=== PATIENT | male | born 1965 | race Caucasian/White ===

== ENCOUNTER 2019-04-09 16:44 | Emergency (ER) | payer SELFPAY ==
[2019-04-09] MEDS ORDERED: LORazepam 0.5 MG Tab PO ONE (18:08)
--- NOTE | 2019-04-09 18:20 | EDM.PDOC ---
ED HPI GENERAL MEDICAL PROBLEM - General Chief Complaint: Drug or Alcohol Abuse Stated Complaint: DETOX Time Seen by Provider: 04/09/19 17:51 Source of Information: Reports: Patient, RN Notes Reviewed History Limitations: Reports: No Limitations - History of Present Illness INITIAL COMMENTS - FREE TEXT/NARRATIVE: Patient is a 53-year-old male who presents to the ED for the evaluation of his alcohol issues. The patient states that he has a history of alcoholism, had an 8 year period of being sober, but about 1 to 1-1/2 months ago, he just started drinking again. He notes that there was no specific reason. He further notes that he ran out of anxiety meds around that time as well. He use to take clonazepam 0.5 mg twice a day PRN, and Lexapro daily. He also takes medications for blood pressure. He denies any other past medical history. He is in the ER today with his daughter. He was in contact with [facility], and was directed to come to the ER for evaluation at this time. He denies any fevers or chills, he does complain of some anxiety, nausea, vomiting , and diarrhea. Patient states he hasn't really gotten a good nights' sleep in the last few days as well. He noticed that the nausea and vomiting diarrhea has worsened since he started drinking again. He has no abdominal pain, no chest pain or no shortness of breath. He denies pain anywhere else. - Related Data Allergies Allergy/AdvReac Type Severity Reaction Status Date / Time Sulfa (Sulfonamide Allergy Rash Verified 04/09/19 17:09 Antibiotics) Home Meds: Home Meds LORazepam [Ativan] 1 mg PO TID PRN #12 tab 04/09/19 [Rx] Lisinopril/Hydrochlorothiazide [Lisinopril-Hctz 20-12.5 mg Tab] 1 tab PO DAILY 04/09/19 [History] Zolpidem [Ambien] 10 mg PO BEDTIME #5 tab 04/09/19 [Rx] Past Medical History Cardiovascular History: Reports: High Cholesterol, Hypertension Psychiatric History: Reports: Addiction, Anxiety - Past Surgical History Musculoskeletal Surgical History: Reports: Other (See Below) Other Musculoskeletal Surgeries/Procedures:: elbow surgery Social & Family History - Family History Family Medical History: Noncontributory - Tobacco Use Smoking Status *Q: Current Every Day Smoker Years of Tobacco use: 20 Packs/Tins Daily: 0.5 - Caffeine Use Caffeine Use: Reports: Soda - Alcohol Use Days Per Week of Alcohol Use: 7 Number of Drinks Per Day: 12 Total Drinks Per Week: 84 - Recreational Drug Use Recreational Drug Use: No ED ROS GENERAL - Review of Systems Review Of Systems: See Below Constitutional: Denies: Fever, Chills HEENT: Reports: No Symptoms Respiratory: Denies: Shortness of Breath, Cough Cardiovascular: Denies: Chest Pain Endocrine: Reports: No Symptoms GI/Abdominal: Reports: Diarrhea, Nausea, Vomiting. Denies: Abdominal Pain, Constipation : Reports: No Symptoms Musculoskeletal: Reports: No Symptoms Skin: Reports: No Symptoms Neurological: Denies: Confusion, Dizziness, Seizure, Syncope Psychiatric: Reports: Anxiety. Denies: Depression, Hallucinations, Homicidal Ideation, Mood Lability, Suicidal Ideation Hematologic/Lymphatic: Reports: No Symptoms Immunologic: Reports: No Symptoms ED EXAM, GENERAL - Physical Exam Exam: See Below Exam Limited By: No Limitations General Appearance: Alert, WD/WN, No Apparent Distress, Anxious (pt has baseline tremor at rest, appears visually anxious, keeps apologizing, saying I' m sorry.) Eye Exam: Bilateral Eye: EOMI, Normal Inspection, PERRL Nose: Normal Inspection Throat/Mouth: Normal Inspection, Normal Lips, Normal Teeth, Normal Gums, Normal Oropharynx, Normal Voice, No Airway Compromise Head: Atraumatic, Normocephalic Neck: Normal Inspection Respiratory/Chest: No Respiratory Distress, Lungs Clear, Normal Breath Sounds, No Accessory Muscle Use, Chest Non-Tender Cardiovascular: Normal Peripheral Pulses, Regular Rate, Rhythm, No Edema, No Murmur Peripheral Pulses: 3+: Radial (L), Radial (R) GI/Abdominal: Normal Bowel Sounds, Soft, Non-Tender, No Distention, No Mass Extremities: Normal Inspection, Normal Capillary Refill Neurological: Alert, Oriented, Normal Cognition, No Motor/Sensory Deficits Psychiatric: Normal Affect, Normal Mood Skin Exam: Warm, Dry, Intact, Normal Color, No Rash Course - Vital Signs Last Recorded V/S: Last Vital Signs Temp 99.4 F 04/09/19 17:03 Pulse 118 H 04/09/19 17:03 Resp 22 H 04/09/19 17:03 BP 166/109 H 04/09/19 17:03 Pulse Ox 91 L 04/09/19 17:03 - Orders/Labs/Meds Meds: Medications Discontinued Medications Generic Name Dose Route Start Last Admin Trade Name Keny PRN Reason Stop Dose Admin Lorazepam 1 mg 04/09/19 18:08 04/09/19 18:37 Ativan PO 04/09/19 18:09 1 mg ONETIME ONE Administration - Re-Assessments/Exams Free Text/Narrative Re-Assessment/Exam: 04/09/19 18:22 Patient presents to the ED for the evaluation of his alcohol issues. I did order 1 mg PO Ativan for his anxiety, he was requesting something for sleep when he goes to bed lands. He states he had taken Ambien safely at the past, we 'll likely give him a few tablets of this so he get a couple good nights rest, along with a prescription for Ativan. Departure - Departure Time of Disposition: 18:58 Disposition: DC/Tfer to Other 70 Condition: Fair Clinical Impression: Alcohol abuse - Discharge Information *PRESCRIPTION DRUG MONITORING PROGRAM REVIEWED*: No *COPY OF PRESCRIPTION DRUG MONITORING REPORT IN PATIENT BLAYNE: No Prescriptions: LORazepam [Ativan] 1 mg PO TID PRN #12 tab PRN Reason: Muscle Spasm Zolpidem [Ambien] 10 mg PO BEDTIME #5 tab Instructions: Alcohol Use Disorder, Finding Treatment for Addiction Referrals: PCP,None [Primary Care Provider] - Additional Instructions: You were evaluated in the ED regarding your alcohol abuse. You were given Ativan in the ED, this seemed to help your symptoms of anxiety. You will be given a prescription of Ativan, 1 tablet 3 times a day for further anxiety symptoms, you were given a prescription for Ambien, please take one tablet at night for sleep purposes. Recommend that you follow up with [facility] human services, and report there for their alcohol treatment program after you are discharged from the ER. Please return to the ED at any time if your symptoms should change or worsen.
== END 2019-04-09 19:18 | disposition other institution (70) ==
LOC: JD.ED 16:44
DX: F10.20 Alcohol dependence, uncomplicated (principal); F41.9 Anxiety disorder, unspecified; I10 Essential (primary) hypertension; F17.210 Nicotine dependence, cigarettes, uncomplicated; Z79.899 Other long term (current) drug therapy; Z88.2 Allergy status to sulfonamides
CPT/HCPCS: 99284; A9270; 99283